=== PATIENT | female | born 1985 | race Caucasian/White ===

== ENCOUNTER → 2018-07-12 12:23 | Outpatient (CLI) | payer OTHER, SELFPAY ==
[2018-07-12 12:44] LABS: Microscopic, Urine URINE MICROSCOPIC (MICROSCOPIC)
[2018-07-12 13:14] LABS: Appearance,Urine CLEAR (Clear); Bilirubin,Urine Negative (Negative); Blood, Urine 2+ (Negative); Color,Urine ORANGE (Yellow); Glucose,Urine (UA) Negative (Negative); Ketones,Urine Negative (Negative); Leukocyte Esterase,Urine 1+ (Negative); Nitrate,Urine POSITIVE (Negative); PH,Urine 5.5 (5.0-8.5); Protein,Urine 1+ (Negative); Specific Gravity, Urine 1.015 (1.005-1.030)
[2018-07-12 14:48] LABS: Bacteria,Urine Trace /lpf
== END ==
PROVIDERS: Visit Provider Internal Medicine
DX: N39.0 Urinary tract infection, site not specified (principal)
CPT/HCPCS: 81001; 87086; 87088; 87186

== ENCOUNTER → 2019-03-13 10:53 | Outpatient (POV) | payer OTHER, SELFPAY | PROVIDERS: Visit Provider Dermatology | DX: Z00.00 Encounter for general adult medical examination without abnormal findings (principal) ==

== ENCOUNTER → 2021-07-22 17:07 | Outpatient (CLI) | payer OTHER, SELFPAY ==
[2021-07-22 19:16] LABS: Thyroid Stimulating Hormone 1.09 uIU/mL (0.465-4.68)
== END ==
PROVIDERS: Visit Provider Internal Medicine
DX: E04.9 Nontoxic goiter, unspecified (principal); J30.9 Allergic rhinitis, unspecified; J45.909 Unspecified asthma, uncomplicated
CPT/HCPCS: 84443

== ENCOUNTER 2024-03-20 01:45 | Emergency (ER) | payer BC, SELFPAY ==
[2024-03-20 01:48] VITALS: BP 129/81; PULSE 87; RESP 18; TEMP 36.4; O2SAT 96; BMI 37.2
--- NOTE | 2024-03-20 02:00 | HMH.EDGENADL ---
Discharge Plan Disposition Patient Disposition: Home, Self-Care Prescriptions Prescriptions: No Action hydrocortisone [Anusol-HC] 2.5 % cream with perineal applicator 1 applic MD QID PRN (Reason: hemorrhoids) Qty: 60 2RF triamcinolone acetonide 0.1 % cream 1 applic TOPICAL TID Qty: 60 0RF clobetasol 0.05 % solution 1 applic topical BID PRN (Reason: Psoriasis of scalp) 14 Days Qty: 50 1RF Rx Instructions: Apply a small amount to the scalp twice daily as needed lidocaine 5 % ointment 1 applic topical QID PRN (Reason: pain) Qty: 30 1RF montelukast 10 mg tablet See Rx Instructions .ROUTE .COMPLEX Qty: 90 1RF Dose Instruction: TAKE ONE TABLET BY MOUTH EVERY DAY Rx Instructions: TAKE ONE TABLET BY MOUTH EVERY DAY albuterol sulfate 90 mcg/actuation HFA aerosol inhaler See Rx Instructions .ROUTE .COMPLEX Qty: 25.5 1RF Dose Instruction: INHALE TWO PUFFS BY MOUTH EVERY 6 HOURS NEEDED FOR ASTHMA Rx Instructions: INHALE TWO PUFFS BY MOUTH EVERY 6 HOURS NEEDED FOR ASTHMA Referrals Follow up/Referrals: David Castorena MD [Primary Care Provider] - See instructions Activity Restrictions/Add. Instructions Additional Instructions/Restrictions: Please apply 2 drops of the gentamicin into each eye every 4 hours for the next 5 days. Recommend follow-up with ophthalmology if your symptoms worsen or do not improve. Clinical Impressions Clinical Impression: Conjunctivitis Corneal abrasion Qualifiers: Encounter type: initial encounter Laterality: right Qualified Code(s): S05.01XA - Injury of conjunctiva and corneal abrasion without foreign body, right eye, initial encounter Print Language Print Language: Unknown Discharge ED Provider: Richard Mcneil General Adult HPI General Chief complaint: Eye Problems Stated complaint: L eye pain, redness, watery Time Seen by Provider: 03/20/24 01:50 History of Present Illness HPI narrative: 38-year-old female, wears contacts, no significant eye history presents for eye pain and redness. She reports that it has been getting worse throughout the day. It is worse in her left eye but feels like it is starting in her right eye as well. She denies any known foreign body, but it is felt like something has been in her eye. She took her contacts out but it did not improve. Related Data Previous Rx's ?Medication ?Instructions ?Recorded clobetasol 0.05 % scalp solution 1 applic topical BID PRN Psoriasis 09/27/23 of scalp 2 weeks #50 mL hydrocortisone 2.5 % topical cream 1 applic MD QID PRN hemorrhoids 09/27/23 with perineal applicator #60 grams (Anusol-HC) triamcinolone acetonide 0.1 % 1 applic topical TID #60 grams 09/27/23 topical cream lidocaine 5 % topical ointment 1 applic topical QID PRN pain #30 10/04/23 grams montelukast 10 mg tablet See Rx Instructions .Route 11/28/23 .COMPLEX #90 tabs albuterol sulfate 90 mcg/actuation See Rx Instructions .Route 03/16/24 aerosol inhaler .COMPLEX #25.5 grams Allergies Allergy/AdvReac Type Severity Reaction Status Date / Time Penicillins Allergy Intermediate Verified 10/04/23 15:02 [facility] Disclaimer: The information contained in this section may have been updated after the patient was seen, as this information can be updated by other users. Social History Smoking Status: Current every day smoker alcohol intake: never current occupational status: employed Travel in the last 8 weeks: None Have you lived/traveled outside [place] in past 30 days?: No Contact w/someone who lives/traveled outside US past 30 days?: No Exposure to someone with infectious disease in past 14 days?: No Do you have a fever (greater than 100.4 F or 38 C)?: No Have you tested positive for COVID-19: No Exposed to someone with COVID-19 in past 14 days?: No Do you have a sore throat?: No Do you have a cough?: No Do you have any weakness?: No Do you have any diarrhea?: No Are you experiencing any unusual bleeding?: No Do you have any muscle aches/pain?: No Do you have any abdominal pain?: No Are you experiencing loss of taste or smell?: No Other Medical History Have you received the Flu Vaccine for this season: Yes Have you received the Pneumonia Vaccine: Yes ROS Obtained: Yes All systems reviewed & no additional complaints except as documented Physical Exam General General appearance: alert and in no apparent distress Head Head exam: atraumatic and normocephalic Eye Eye exam: Present PERRL, EOMI and conjunctival injection ENT ENT exam: Present normal oropharynx and normal external ear exam Neck Neck exam: Present normal inspection and full ROM Chest Chest inspection: Present normal inspection and symmetric chest wall rise; Absent tenderness Respiratory Respiratory exam: Present normal lung sounds bilaterally; Absent respiratory distress Cardiovascular Cardiovascular exam: Present regular rate and normal rhythm Abdominal Exam Abdominal exam: Present soft; Absent distention, tenderness or guarding Extremities Exam Extremities exam: Present normal inspection; Absent edema or joint swelling Back Exam Back exam: Present normal inspection; Absent tenderness Neurological Exam Neurological exam: Present alert and oriented X3; Absent motor sensory deficit Psychiatric Psychiatric exam: Present normal affect and normal mood Skin Skin exam: Present warm, dry and normal color Lymphatic Lymphatic Findings: no adenopathy Medical Decision Making Medical Records Medical records reviewed: Yes I reviewed the patient's medical records. Screening: Per USPSTF and CDC recommendations, given the prevalence of disease in our region, it is our hospital?s policy to screen for HIV and viral Hepatitis for all patients aged 18 and over and those with ongoing risk factors. Adiel Inquiry Pt receiving controlled substance: No Adiel was queried for this patient: No Vital Signs: 03/20/24 01:48 03/20/24 02:09 Temperature 97.6 F 97.9 F Temperature Source Oral Oral Pulse Rate 87 Pulse Rate [Right Apical] 87 Respiratory Rate 18 16 Blood Pressure 129/81 Blood Pressure [Right Arm] 129/81 Blood Pressure Mean [Right Arm] 97 Blood Pressure Source [Right Arm] Automatic Cuff Blood Pressure Position [Right Arm] Sitting 02 Sat by Pulse Oximetry 96 Oxygen Delivery Method Room Air Room Air Lab Data Lab results reviewed: Yes I reviewed the patient's lab results. Orders (Tests/Meds): ED MEDICATIONS Discontinued Medications Generic Name Dose Route Start Last Admin Trade Name Freq PRN Reason Stop Dose Admin Fluorescein Sodium 1 mg 03/20/24 02:05 03/20/24 02:06 Fluorescein Sodium 1mg Strip OP 03/20/24 02:06 1 mg ONCE ONE Administration Gentamicin Sulfate 2 ml 03/20/24 02:03 03/20/24 02:07 Gentamicin 0.3% Opth Nora 5ml OP 03/20/24 02:04 2 ml ONCE ONE Administration Tetracaine HCl 1 ml 03/20/24 02:04 03/20/24 02:06 Tetracaine 0.5% Opth Nora 15ml OP 03/20/24 02:05 1 ml ONCE ONE Administration Medical Decision Narrative: 38-year-old female without significant past medical history, wears contacts, presents for worsening eye pain and redness, left eye greater than right, worsening throughout the day. History was obtained via interactive discussion with patient. On arrival, patient is [afebrile, hemodynamically stable, satting appropriately, alert, oriented x4, GCS 15], moving all extremities spontaneously. Full physical exam performed and significant for bilateral conjunctival injection and mild mucoid discharge, left greater than right. Pupils equal round reactive to light. Fluorescein stain shows no uptake on the left, subtle uptake on the right concerning for possible abrasion. Intraocular pressures were 10 on the right and 9 on the left. Differential includes but is not limited to corneal abrasion, viral conjunctivitis, bacterial conjunctivitis, corneal ulcer, glaucoma. History and exam appears consistent with small corneal abrasion on the right and conjunctivitis on the left. Given history of of contact use, patient was initiated on gentamicin drops every 4 hours for the next 5 days. She was encouraged to follow-up with ophthalmology or return with new or worsening symptoms.. Patient discharged in stable condition. Procedures Risk/Benefits of Procedure(s) Were Explained: Yes Critical Care Critical Care Time Critical Care Time: No
[2024-03-20] MEDS: FLUORESCEIN SODIUM 1MG STRIP 1 MG OP (02:06)
[2024-03-20] MEDS: TETRACAINE 0.5% OPTH SOL 15ML OP (02:06)
[2024-03-20] MEDS: GENTAMICIN 0.3% OPTH SOL 5ML 2 ML OP (02:07)
[2024-03-20 02:09] VITALS: BP 129/81; PULSE 87; RESP 16; TEMP 36.6; O2SAT 96
== END 2024-03-20 02:12 | disposition home or self-care (01) ==
LOC: ER 02:02
PROVIDERS: Emergency Provider Emergency Medicine; PCP Internal Medicine
DX: H10.32 Unspecified acute conjunctivitis, left eye (principal); S05.01XA Injury of conjunctiva and corneal abrasion without foreign body, right eye, initial encounter; H57.13 Ocular pain, bilateral; Z97.3 Presence of spectacles and contact lenses
CPT/HCPCS: 99283

== ENCOUNTER 2024-08-20 07:27 | Day surgery (SDC) | payer BC, SELFPAY ==
[2024-08-17 10:04] VITALS: BMI 38.0
[2024-08-20 08:11] VITALS: BP 115/76; PULSE 83; RESP 18; TEMP 36.1; O2SAT 96
[2024-08-20] MEDS: LACTATED RINGERS 1000ML 1,000 ML 50 ML IV (08:11)
--- NOTE | 2024-08-20 08:11 | P.PNANES_ITS ---
[facility] Disclaimer: The information contained in this section may have been updated after the patient was seen, as this information can be updated by other users. Medical History Asthma Surgical History Hx of tubal ligation H/O oophorectomy History of delivery Family History Father Glioblastoma Mother Hypertension Thyroid disorder Social History Smoking Status: Current every day smoker alcohol intake: current alcohol intake frequency: holidays/special occasions only substance use type: denies use current occupational status: employed Travel in the last 8 weeks?: None [facility] Anesthesia Checklist Patient Identification Patient Identification: Verbal (Name & ) Structural Data Admitted From: Home Planned Operative Procedure/s: colonoscopy Consent for Planned Operative Procedure(s) Verified: Yes Airway Assessment Mallampati Score:: Class II C-Spine Mobility Assessed: Yes TMJ Mobility Assessed: Yes Dentition: Good Dentition Neurological Assessment Level of Consciousness: Awake, Alert and Appropriate Anesthesia Plan Anesthesia Risk discussed: Yes Anesthesia Plan: Verified ASA Class: II Anesthesia Type: MAC
[2024-08-20 08:12] LABS: Urine Pregnancy, HCG Qual. Negative (Negative)
--- NOTE | 2024-08-20 08:43 | EXP.HP ---
History of Present Illness *Admission Date: 08/20/24 *Reason for visit:: Painful rectal bleeding, constipation *History of present illness: Mrs. Lawler is a 38-year-old female who is here for diagnostic colonoscopy. She has had hemorrhoidal bleeding and painful hemorrhoids. She also has constipation. Her mother recently had a more advanced adenomatous polyp removed at time of colonoscopy. The examination is deemed medically necessary for diagnostic colonoscopy. The patient has been seen, interviewed and examined prior to the procedure by both myself and the anesthesia provider. [facility] Disclaimer: The information contained in this section may have been updated after the patient was seen, as this information can be updated by other users. Medical History Asthma Surgical History Hx of tubal ligation H/O oophorectomy History of delivery Family History Father Glioblastoma Mother Hypertension Thyroid disorder Social History (Updated 08/20/24 @ 08:11 by Ricky Mcgovern CRNA) Smoking Status: Current every day smoker alcohol intake: current alcohol intake frequency: holidays/special occasions only substance use type: denies use current occupational status: employed Travel in the last 8 weeks?: None Have you lived/traveled outside US in past 30 days?: No Contact w/someone who lives/traveled outside US past 30 days?: No Exposure to someone with infectious disease in past 14 days?: No Do you have a fever (greater than 100.4 F or 38 C)?: No Have you tested positive for COVID-19?: No Exposed to someone with COVID-19 in past 14 days?: No Do you have a sore throat?: No Do you have a cough?: No Do you have any weakness?: No Do you have any diarrhea?: No Are you experiencing any unusual bleeding?: No Do you have any muscle aches/pain?: No Do you have any abdominal pain?: No Are you experiencing loss of taste or smell?: No Other Medical History Have you received the Flu Vaccine for this season: Yes Have you received the Pneumonia Vaccine: Yes Review of Systems Review of Systems Review of systems (narrative): Negative *Cardiovascular Comments: Negative *Gastrointestinal Comments: Negative *Genitourinary Comments: Negative *Musculoskeletal Comments: Negative *Neurologic Comments: Negative Meds Home Medications and Allergies Home Medications ?Medication ?Instructions ?Recorded ?Confirmed ?Type clobetasol 0.05 % scalp solution 1 applic topical BID PRN Psoriasis 09/27/23 08/17/24 Rx of scalp 2 weeks #50 mL triamcinolone acetonide 0.1 % 1 applic topical TID #60 grams 09/27/23 08/17/24 Rx topical cream albuterol sulfate 90 mcg/actuation See Rx Instructions .Route 03/16/24 08/17/24 Rx aerosol inhaler .COMPLEX #25.5 grams montelukast 10 mg tablet See Rx Instructions .Route 07/06/24 08/17/24 Rx .COMPLEX #90 tabs hydrocortisone 2.5 % topical cream 1 applic TN QID PRN hemorrhoids 07/23/24 08/17/24 Rx with perineal applicator #60 grams (Anusol-HC) inulin 1.7 gram chewable tablet 1.7 g PO DAILY 08/16/24 08/17/24 History (Fiber Gummies) loratadine 10 mg tablet (Claritin) 10 mg PO DAILY 08/16/24 08/17/24 History New Prescriptions to Start Prescriptions: Allergies Allergy/AdvReac Type Severity Reaction Status Date / Time Penicillins Allergy Intermediate Other Verified 08/20/24 08:10 shellfish derived Allergy Anaphylaxis Verified 08/20/24 08:10 Exam Data for Last 24 hours Vital signs and Labs for Last 24 Hours: Temp Pulse Resp BP Pulse Ox O2 Del Method 97.0 F L 83 18 115/76 96 Room Air 08/20/24 08:11 08/20/24 08:11 08/20/24 08:11 08/20/24 08:11 08/20/24 08:11 08/20/24 08:11 Laboratory Results - last 24 hr 08/20/24 07:55: Urine HCG, Qual Negative I & O for Last 24 hours: Intake & Output 08/17/24 08/18/24 08/19/24 08/20/24 23:59 23:59 23:59 23:59 Weight 214 lb 9.003 oz *Routine HEENT Exam Head: Present normocephalic Eye: Present EOMI and PERRL ENT: Present mucous membranes moist *Routine Neck Exam Neck: Present supple *Routine Respiratory Exam Respiratory: Present CTA bilaterally *Routine Cardiovascular Exam Cardiovascular: Present RRR *Routine Abdominal Exam Abdominal: Present soft and normoactive bowel sounds; Absent tenderness *Routine Rectal Exam Rectal:: deferred *Routine Genitalia Exam Genitalia:: deferred *Routine Extremities Exam Extremities: Absent cyanosis, clubbing or edema *Routine Skin Exam Skin: Present warm; Absent rash *Routine Neurological Exam Neurological: Present alert and oriented X3 Assessment and Plan *Assessment and plan (1) Rectal bleeding: Status: Acute Category: Medical Code(s): K62.5 - Hemorrhage of anus and rectum (2) Hemorrhoids: Status: Acute Category: Medical Code(s): K64.9 - Unspecified hemorrhoids (3) Constipation: Status: Acute Category: Medical Code(s): K59.00 - Constipation, unspecified (4) Family history of adenomatous polyp of colon: Status: Acute Category: Social Hx Code(s): Z83.710 - Family history of adenomatous and serrated polyps Plan A/P: 1. Bright red rectal bleeding, painful hemorrhoids and constipation is the preprocedural diagnosis. The patient will be anesthetized/sedated using MAC sedation. The patient has been seen and examined. Cardiac and lung assessment prior to the examination is stable. Proceed with planned diagnostic colonoscopy.
--- NOTE | 2024-08-20 08:45 | HMH.PROCNOTE ---
[facility] Procedure Note Date: 08/20/24 Time: 09:04 Procedure Note:: Colonoscopy Procedure Report: Colonoscopy with hemorrhoid band ligation Endoscopist: Anson Tang II, MD Referring physician: David Castorena MD Date of Procedure: August 20, 2024 Equipment: Olympus 190 variable stiffness pediatric colonoscope Sedation: MAC sedation Indication: Mrs. Lawler is a 38-year-old female who is here for diagnostic colonoscopy. She does have intermittent episodes of painful rectal bleeding. She also has some chronic constipation. She does use fiber Gummies and MiraLAX as needed. She reports no abdominal pain or weight loss. She reports no family history of colon cancer. The patient's mother recently had a colonoscopy with ut and had a large advanced adenoma removed. Last year she had a bout of hemorrhoids and bleeding that lasted for about 6 weeks. This flared up again about a month ago and lasted for 2 weeks. The patient has used diosmin ( vein vitality) and Anusol rectal cream. The patient does get some bloating and gassiness. This is her first colonoscopy. Procedure: Prior to the procedure, a history and physical exam was performed, and patient's medications and allergies were reviewed. The risks, benefits and alternatives of the sedation and procedure were discussed with the patient. All questions were answered and informed consent was obtained. The patient was brought to the procedure room. Patient identification and proposed procedure were verified by the physician and the nurse. The patient was placed in a left lateral decubitus position and the scope was passed under direct vision. Throughout the procedure, the patient's blood pressure, pulse, and oxygen saturations were monitored continuously. The colonoscopy was accomplished without difficulty. The patient tolerated the procedure well. Findings: On digital rectal examination there was normal rectal tone. There were larger external hemorrhoidal tags. There was no anterior or posterior midline fissures. The colonoscope was introduced through the anal canal to the rectum and advanced to the cecum. The ileocecal valve and appendiceal orifice were identified. The scope was advanced a short distance into the ileum which appeared grossly normal. The scope was then withdrawn into the colon. The cecum, ascending, transverse, descending, sigmoid and rectum were grossly normal. There were no mucosal abnormalities identified. Upon retroflexion within the rectum there were grade 2-3 internal hemorrhoids. 3 columns of hemorrhoids were banded using 3 bands with excellent ligation effect. The preparation was excellent throughout with [place] Preparation Score of 9. The cecal time was 10 minutes. Impression: 1. Normal colonoscopy with intubation of the terminal ileum 2. Grade 2-3 internal hemorrhoids status post band ligation x 3 3. Large external hemorrhoidal tags Plan: I would encourage continuation of a fiber bowel regimen (combined MiraLAX plus Metamucil) on a regular and daily basis. I will discuss the findings with the patient and family.
[2024-08-20 09:12] VITALS: BP 116/70; PULSE 84; RESP 16; TEMP 36.1; O2SAT 96
[2024-08-20 09:22] VITALS: BP 122/86; PULSE 82; RESP 17; O2SAT 97
[2024-08-20 09:32] VITALS: BP 129/81; PULSE 76; RESP 17; O2SAT 100
[2024-08-20 09:42] VITALS: BP 124/75; PULSE 71; RESP 18; O2SAT 100
[2024-08-20] MEDS: ONDANSETRON 4MG ODT 4 MG SL (09:47)
== END 2024-08-20 10:09 | disposition home or self-care (01) ==
PROVIDERS: PCP Internal Medicine; Visit Provider Internal Medicine Gastroenterology
PROC: 0DJD8ZZ Inspection of Lower Intestinal Tract, Via Natural or Artificial Opening Endoscopic (ICD-10-PCS; CPT 45378; principal; 2024-08-20 09:00)
DX: K64.1 Second degree hemorrhoids (principal); K64.2 Third degree hemorrhoids; K64.4 Residual hemorrhoidal skin tags; J45.909 Unspecified asthma, uncomplicated; F17.200 Nicotine dependence, unspecified, uncomplicated; Z79.899 Other long term (current) drug therapy
CPT/HCPCS: 45398; 81025; C1889; J7120; Q0162